=== PATIENT | male | born 1960 | race Caucasian/White ===

== ENCOUNTER → 2016-08-26 | Outpatient (REF) ==
[~2016-08-26] MED LIST: ASPIRIN 81M81 MG/TA2 PO
== END ==
LOC: WSOH 08:10
DX: Z02.89 Encounter for other administrative examinations (principal)
CPT/HCPCS: G0463

== ENCOUNTER 2022-11-19 05:45 | Day surgery (SDC) | payer OTHER ==
[~2022-11-19] VITALS: Ht 172.7 cm; Wt 81.9 kg
[2022-11-19 06:32] VITALS: BP 138/94; PULSE 82; TEMP 97.6
[2022-11-19 07:25] VITALS: BP 127/82; PULSE 66; TEMP 97.8
--- NOTE | 2022-11-19 07:25 | NUR ---
PATIENT, ALERT AND ORIENTED, AMBULATED TO CHAIR WITH STANDBY ASSIST. BREATHING REGULAR AND UNLABORED. PATIENT DENIES PAIN AND NAUSEA. NURSE HANDOFF COMPLETED IN ROOM. SEE CHART FOR VITAL SIGNS. PATIENT HAD APPLE JUICE AND A MUFFIN. BOTH FOOD AND DRINK TOLERATED WELL. PATIENT SPOUSE, MEGHAN, PRESENT IN ROOM. CALL LIGHT IN REACH.
[2022-11-19 07:30] VITALS: BP 125/81; PULSE 60
[2022-11-19 07:45] VITALS: BP 141/90; PULSE 61
[2022-11-19 07:57] VITALS: BP 133/86; PULSE 65
--- NOTE | 2022-11-19 07:57 | NUR ---
DR. SHAFFER MET WITH PATIENT TO DISCUSS PROCEDURE. DISCHARGE TEACHING COMPLETED WITH PRINTED EDUCATION AND INSTRUCTIONS SENT HOME WITH PATIENT. PATIENT VERBALIZED UNDERSTANDING OF TEACHING. IV REMOVED. PATIENT DISCHARGED HOME WITH [facility].
== END 2022-11-19 08:02 | disposition home or self-care (01) ==
LOC: SDCO 05:45
DX: Z12.11 Encounter for screening for malignant neoplasm of colon (principal); K63.5 Polyp of colon; Z28.310 Unvaccinated for COVID-19
CPT/HCPCS: J2704; J3010; J7120